=== PATIENT | female | born 1995 | race Caucasian/White ===

== ENCOUNTER 2019-08-15 18:21 | Emergency (ER) | payer BC, OTHER ==
[~2019-08-15] VITALS: Ht 165.1 cm; Wt 59.0 kg
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
[2019-08-15] MEDS ORDERED: NORCO 5-325 TA1 EAC1 PO (21:19)
[2019-08-15 21:22] VITALS: BP 148/84
== END 2019-08-15 21:28 | disposition home or self-care (01) ==
LOC: ER 18:21
DX: S41.112A Laceration without foreign body of left upper arm, initial encounter (principal); S00.83XA Contusion of other part of head, initial encounter; S80.12XA Contusion of left lower leg, initial encounter; Z88.2 Allergy status to sulfonamides; V49.88XA Car occupant (driver) (passenger) injured in other specified transport accidents, initial encounter; Y93.89 Activity, other specified; Y92.413 State road as the place of occurrence of the external cause; Y99.9 Unspecified external cause status